=== PATIENT | female | born 1975 | race Caucasian/White ===

== ENCOUNTER → 2016-09-30 | Day surgery (SDC) | payer OTHER ==
[~2016-09-30] MED LIST: ACETAMINOPHEN 1000 MG/100 ML VIAL IV ONE; BACITRACIN IM FOR SOLN 50,000 UNIT VIAL ONE; BUPIVACAINE/EPINEPHRINE 0.25% 50 ML VIAL ONE; GENTAMICIN SULFATE 80 MG/2 ML VIAL ONE; KETOROLAC TROMETHAMINE 30 MG/ML (IVP) VIAL ONE; LACTATED RINGER'S 1,000 ML BAG IV ONE; LACTATED RINGER'S 1000 ML INJ 1,000 ML ONE; LIDOCAINE 1%/EPINEPHrine 1:100,000 SOLN 20 ML VIAL ONE; MIDAZOLAM HCL 2 MG/2 ML VIAL ONE; ONDANSETRON HCL 4 MG/2 ML VIAL IV PUSH ONE; PROPOFOL 200 MG/20 ML AMP IV ONE; SODIUM CHLOR 0.9% 250 ML INJ 250 ML IV ONE; SODIUM CHLORIDE 0.9% 20 ML VIAL ONE; VANCOMYCIN 500 MG VIAL ONE; ceFAZolin INJ 1,000 MG VIAL ONE
--- NOTE | 2016-09-30 13:35 | TN ---
cc: SIVAKUMAR VELASQUEZ M.D. DATE OF SURGERY 09/30/2016 PREOPERATIVE DIAGNOSIS Status post augmentation mammoplasty with further herniation lateral medially PROCEDURE PERFORMED Removal of replacement implants with lateral inferior capsulorrhaphies and left modified mastopexy. SURGEON Sivakumar Velasquez MD ANESTHESIA LMA general ESTIMATED BLOOD LOSS Minimal COMPLICATIONS None DRAINS None IMPLANT DATA Of the current implants, Natrelle Inspire SRX 340 cc, serial number on the right breast implant [id number] and to the left [id number]. Again both are Natrelle inspire SRX PROCEDURE She was properly consented, marked, properly anesthetized. The skin was sterilized with Betadine solution, sterile draping applied. A breast block was applied. I proceeded to perform a proper vertical infra-areolar incision, the implant pocket was opened, encountered, opened and the implant removed. Irrigation with antibiotic solution was carried out. I had isolate the nipple-areolar complex from the beginning. Lateral and medial capsulorrhaphies were done where needed with multiple layers of 0 silk suture in a [id number] fashion. The inframammary fold, was re-estimated, and was reinforced with a 6 x 10 Acell dermal matrix thick. It was anchored with also pledgets of 2-0 Ethibond suture which the pledgets were Xeroform gauze, two superior and two inferior were properly done to reinforce this area. I also adjusted and sutured to the new inframammary fold, the was Acell dermal matrix. The contralateral side was approached in exactly the same manner. The skin now was properly isolated with Tegaderm. The implants were introduced utilizing a no-touch technique. Touch ups were done especially on the left side where the inframammary fold appeared to be still a little lower than the right and this was reinforced with silk in the usual fashion. As the patient was sat up finding that they were finally where they needed to be, the wounds were closed in layers utilizing 2-0 Monocryl suture into the capsule, dermis and subcu. It was found out that the left breast had a little more skin and a modified mastopexy was done utilizing a tailor-tack technique. The skin was de-epithelialized and closed in the usual fashion utilizing 2-0 Monocryl suture. Again, utilizing 2-0 Monocryl suture for the skin, I also used Cong Ibarraabond which was followed by absorbent dressings and a snug brassiere. Overall, the patient tolerated the procedure well. Good viability of tissue was noted at the end of the case. The patient was awakened and extubated in the operating room, transfer back to postanesthesia care unit in stable condition. No complications were appreciated. The patient tolerated the procedure fairly well. MD ARUN De La Vega/RADHA /1:17 PM /1:25 PM
== END | disposition home or self-care (01) ==
LOC: ESDC 08:51
PROVIDERS: ATTEND Plastic Surgery
DX: Z41.1 Encounter for cosmetic surgery (principal)
CPT/HCPCS: 00400; 00402; 19316; 19325; 19328; J0131; J0690; J1580; J1885; J2250; J2405; J3010; J3370; J7050; J7120; C1789; Q4100